=== PATIENT | female | born 1975 ===

== ENCOUNTER 2017-06-14 21:27 | Emergency (ER) | payer SELFPAY ==
[~2017-06-14] VITALS: Ht 172.7 cm; Wt 86.2 kg
[2017-06-14] MEDS ORDERED: ALBUTEROL SULFATE 2.5 MG/3 ML NEBU ONE (21:55)
[2017-06-14] MEDS ORDERED: ONDANSETRON ODT 4 MG TAB.RAPDIS SL ONE (22:00)
[2017-06-14] MEDS ORDERED: predniSONE 20 MG TABLET PO ONE (22:00)
[2017-06-14] MEDS ORDERED: ALBUTEROL SULFATE 2.5 MG/3 ML NEBU NEB ONE (22:00)
[2017-06-14] MEDS ORDERED: OXYCODONE/APAP 5-325 MG TABLET PO ONE (22:00)
[2017-06-14] MEDS ORDERED: OXYCODONE/APAP 5-325 MG TABLET ONE (22:13)
[2017-06-14] MEDS ORDERED: predniSONE 20 MG TABLET ONE (22:13)
[2017-06-14] MEDS ORDERED: ONDANSETRON ODT 4 MG TAB.RAPDIS ONE (22:13)
[2017-06-14 22:55] VITALS: BP 131/74
== END 2017-06-14 22:55 | disposition home or self-care (01) ==
LOC: ER 21:28
DX: J20.9 Acute bronchitis, unspecified (principal); E78.00 Pure hypercholesterolemia, unspecified
CPT/HCPCS: 71045; 94640; 99284; A4663; J7512; Q0162